=== PATIENT | male | born 1980 | race Caucasian/White ===

== ENCOUNTER 2016-11-05 06:10 | Day surgery (SDC) | payer OTHER ==
[2016-11-05] MEDS ORDERED: LACTATED RINGERS 1,000 ML IV ONE ×2 (06:38→08:35)
[2016-11-05] MEDS ORDERED: PROPOFOL 200 MG/20 ML VIAL IVP ONE (07:15)
[2016-11-05] MEDS ORDERED: fentaNYL 100 MCG/2 ML VIAL IVP ONE (07:15)
[2016-11-05] MEDS ORDERED: KETOROLAC 30 MG/ML VIAL IVP ONE (07:15)
[2016-11-05] MEDS ORDERED: ceFAZolin 1 GM VIAL IV ONE (07:15)
[2016-11-05] MEDS ORDERED: ONDANSETRON 4 MG/2 ML VIAL IVP ONE (07:15)
[2016-11-05] MEDS ORDERED: LIDOCAINE-MPF 2% 5 ML VIAL IM ONE (07:15)
[2016-11-05] MEDS ORDERED: ACETAMINOPHEN 1,000 MG/100 ML VIAL IV ONE (07:15)
[2016-11-05] MEDS ORDERED: DEXAMETHASONE 4 MG/ML VIAL IVP ONE (07:15)
[2016-11-05] MEDS ORDERED: MIDAZOLAM 2 MG/2 ML VIAL IVP ONE (07:15)
--- NOTE | 2016-11-05 08:14 | SURGERY HX AND PHYSICAL(T) ---
Surgical History & Physical - PMH/PSH/Social Hx Does the pt have a hx of MRSA?: No Eyes, Ears, Nose, Throat: None Cardiovascular: None Respiratory: None Skin: None Endocrine/Autoimmune: None Gastrointestinal: None Urinary: None Musculoskeletal: None Psychiatric: None - Home Meds and Allergies Allergies/Adverse Reactions: Allergies Allergy/AdvReac Type Severity Reaction Status Date / Time No Known Drug Allergies Allergy Verified 11/05/16 06:41 - Vital Signs Temperature: 36.4 C Respiratory Rate: 16 O2 Saturation: 99 Weight (kg): 92.3 kg Height: 1.75 m - Patient Review Patient Review: Problems were reviewed with the patient during this visit. Medications were reviewed with the patient during this visit. Allergies were reviewed this patient during this visit. Pertinent Tests Reviewed: All pertitent test for this patient were reviewed. - Assessment & Plan Assessment and Plan: History of Present Illness: The sends this very pleasant 36-year-old male to our office on consultation for evaluation and treatment of a left inguinal hernia. The patient states that he had noticed a bulge and discomfort and with time the bulge and discomfort has been slowly getting worse. It was first noted an intensive workout. Lifting and straining or aggravating factors whereas lying down is an alleviating factor. The patient denies increased coughing, or difficulty with urination or constipation. Ultrasound confirmed that a LEFT inguinal hernia was present. Allergies: None. Current Meds: None. Past Medical/Surgical History: None Family History Summary: Mother (biol.) - Has Family History of Other Medical Problems - Diabetes and cancer - Entered On: 09/26/2016 Father (biol.) - Has Family History of Other Medical Problems - Diabetes - Entered On: 09/26/2016 Risk Factors: Smoked Tobacco Use: Never smoker Drug use: no Alcohol use: yes Drinks per day: <1 Exercise: yes Times per week: 3-4 Review of Systems CONSTITUTIONAL: No weight loss, fever, chills, weakness or fatigue. HEENT: Eyes: No visual loss, blurred vision, double vision or yellow sclerae. Ears, Nose, Throat: No hearing loss, sneezing, congestion, runny nose or sore throat. SKIN: No rash or itching. CARDIOVASCULAR: No chest pain, chest pressure or chest discomfort. No palpitations or edema. RESPIRATORY: No shortness of breath, cough or sputum. GASTROINTESTINAL: No anorexia, nausea, vomiting or diarrhea. No abdominal pain or blood. GENITOURINARY: No dysuria. No impotence. NEUROLOGICAL: No headache, dizziness, syncope, paralysis, ataxia, numbness or tingling in the extremities. No change in bowel or bladder control. MUSCULOSKELETAL: No muscle, back pain, joint pain or stiffness. HEMATOLOGIC: No anemia, bleeding or bruising. LYMPHATICS: No enlarged nodes. No history of splenectomy. PSYCHIATRIC: No history of depression or anxiety. ENDOCRINOLOGIC: No reports of sweating, cold or heat intolerance. No polyuria or polydipsia. ALLERGIES: No history of asthma, hives, eczema or rhinitis. Physical Exam Evaluated in Bed 1 [facility] - at bedside General: 36-year old male, appears stated age, well developed, well nourished HEENT: Normocephalic, atraumatic, extraocular movement intact, mucous membranes pink and moist, sclera anicteric and not injected Neck: Supple without pain on palpation, mass or bruit Cardiac: Regular rate and rhythm without rub, gallop, or murmur Chest: Clear to auscultation bilaterally Abdomen: Soft, nontender, normoactive bowel sounds, no hepatomegaly, no splenomegaly Genitourinary: Easily reducible left inguinal hernia, no right inguinal hernia, testes descended, penis normal - surgical site initialed by me Rectal: Deferred Extremities: No gross neurovascular problem, no clubbing, cyanosis or edema Gait: No gross motor deficit Psychiatric: Alert and oriented to person place and time, asks and answers questions appropriately, mood and affect appropriate Impression & Recommendations: Left inguinal herniorrhaphy likely with or without mesh. The indications, procedure, alternatives including not repairing the hernia, and risks including but not limited to infection, bleeding, nerve injury, and were fully explained to the patient and all questions were fully answered. I judy pictures describing what a hernia is and the various ways the hernia can be repaired. I discussed the pros and cons of differing herniorrhaphies. I explained that following the surgery I did not want him lifting anything over 15 pounds for 6 weeks to allow the area to heal optimally and decrease the likelihood that the hernia would recur. Verbal and written consent was obtained. The patient in preparation for his surgery will be nothing by mouth, receive a soap water shower, and receive 2 g of Ancef preoperatively for prophylaxis against surgical infection. I also asked the patient to let me know if there is any way we can make his stay at [facility] more comfortable and he stated that he would let me know. 15 minutes of [id number] time was spent with the patient with over 80% spent in discussion and coordination of his care
[2016-11-05] MEDS ORDERED: BUPIVACAINE 0.5% PF 30 ML VIAL INFIL ONE ×2 (08:48→09:19)
--- NOTE | 2016-11-05 09:40 | OPERATIVE REPORT ---
Operative Report - General Procedure Date: 11/05/16 Planned Procedure: Left inguinal hernia Pre-Op Diagnosis: Left inguinal hernia Post Op Diagnosis: Left indirect inguinal hernia - Procedure Note Primary Surgeon: Russel Louis MD Anesthesia Provider: Luis Adams Anesthesia Technique: General LMA, Local (30 mL 1/2% marcaine) Estimated Blood Loss (in cc): 5 (Qiucwn=9765 mL crystalloid) Complications: None. - Other Other Information/Narrative: OPERATIVE DESCRIPTION/REPORT: After verbal and written informed consent was obtained detailing the risks of infection, bleeding requiring transfusion with its risks, nerve injury, and , and after I met with the patient confirming the surgery and the site of the surgery and after initialing the site of the surgery with a surgical marker , the patient was brought to the operative suite and placed supine on the operating table. Great care was taken to avoid pressure points to prevent pressure necrosis or nerve injury. Monitoring devices were applied along with TEDs and pneumatic compressive stockings (to prevent DVT). The patient received preoperative antibiotics for surgical prophylaxis. Luis Adams sedated and anesthetized the patient for the entire procedure. The patient was prepped and draped in the usual sterile manner. With the patient draped my initials were clearly visible. A "time in" then confirmed that the paitient was identified with 3 identifiers (name, birthdate and medical record number), the history and physical was in the chart, the signed consent confirming the procedure was in the chart, the patient was in the correct position, the aforementioned prophylactic measures were in place or given, we had the correct personnel and equipment to complete the procedure and that anesthesia, surgery and nursing were given an opportunity to express any concerns. With the agreement of everyone in the room, we proceeded with the operation. After the inguinal area was injected with % marcaine, anesthetizing the area , a standard inguinal incision was made and dissection was carried down to the external oblique aponeurosis using a combination of Metzenbaum scissors and Bovie electrocautery. The external oblique aponeurosis was cleared of overlying adherent tissue, and the external ring was delineated. The external oblique was the incised with a scalpel and this incision was carried out to the external ring using Metzenbaum scissors. Having exposed the inguinal canal, the cord structures were from the canal using blunt dissection, and a Renee drain was placed around the cord structures at the level of the pubic tubercle. This Renee drain was then used to retract the cord structures as needed. Adherent cremasteric muscle was dissected free from the cord using Bovie electrocautery. The cord was then explored using a combination of sharp and blunt dissection , and the sac was found anteromedially to the cord structures. The sac was dissected free from the cord structures using a combination of blunt dissection and Bovie electrocautery. Once preperitoneal fat was encountered, the dissection stopped and the sac was high ligated with a 3-0 Vicryl, transected, the stump cauterized and allowed to retract back into the abdominal cavity and a large Bard Perfix plug (Ref# [id number], Lot# [id number]) inserted into the internal ring. The Bard Perfix enlay patch was then placed on the floor of the inguinal canal and secured in place using interrupted 0 and 2-0 PDS sutures. By reinforcing the floor with the enlay patch, a new internal ring was thus formed. The [place] drain was removed. The wound was then irrigated using sterile saline, and hemostasis was obtained using Bovie electrocautery. The incision in the external oblique was approximated using a 3-0 Vicryl in a running fashion , thus reforming the external ring. The skin incision was approximated with 4- 0 Monocryl in a subcuticular fashion. The skin was prepped with benzoin and steristrips were applied. At this point a time out was performed that confirmed that all the counts were correct, the procedure that was performed, the blood loss, the IV fluids administered, and the patients condition. A dressing was then applied. Gentle downward traction ensured that the testes were well seated in the scrotum. Having tolerated the procedure well, the patient was taken to short stay in good and stable condition. By pinning this document I am electronically signing this document.
[2016-11-05] MEDS ORDERED: HYDROcod/ACETAM 10 MG/325 MG TABLET ONE (10:23)
[2016-11-05 10:48] VITALS: BP 122/85
== END 2016-11-05 06:11 | disposition home or self-care (01) ==
LOC: SDS 06:10
PROVIDERS: ATTEND Surgery
PROC: 0YU60JZ Supplement Left Inguinal Region with Synthetic Substitute, Open Approach (ICD-10-PCS; principal; 2016-11-05 07:30)
DX: K40.90 Unilateral inguinal hernia, without obstruction or gangrene, not specified as recurrent (principal)
CPT/HCPCS: 49505; A9270; C1781; J0131; J7120